=== PATIENT | male | born 1970 | race Caucasian/White ===

== ENCOUNTER → 2017-02-05 | Outpatient (CLI) | payer OTHER ==
--- NOTE | 2017-02-05 16:26 | ECHRPT ---
Indication: Cardiac murmur, unspecified CONCLUSIONS Mild concentric left ventricular hypertrophy with LVEF 60%. Normal left ventricular size. No regional wall motion abnormalities are present. The left atrial size is mildly dilated. [id number] mitral valve regurgitation. There is trace to mild tricuspid valve regurgitation. The estimated pulmonary arterial pressure is 34.4 mmHg. BP: / HR: 64 Rhythm: Sinus MEASUREMENTS (Male / Female) Normal Values Technical Quality:Good 2D ECHO LV Diastolic Diameter PLAX 5.2 cm 4.2 - 5.9 / 3.9 - 5.3 cm LV Systolic Diameter PLAX 3.7 cm IVS Diastolic Thickness 1.3 cm 0.6 - 1.0 / 0.6 - 0.9 cm LVPW Diastolic Thickness 1.3 cm 0.6 - 1.0 / 0.6 - 0.9 cm LV Relative Wall Thickness 0.5 LVOT Diameter 2.3 cm M-MODE Aortic Root Diameter MM 3.0 cm LA Systolic Diameter MM 4.3 cm LA Ao Ratio MM 1.4 AV Cusp Separation MM 1.7 cm DOPPLER AV Peak Velocity 158.0 cm/s AV Peak Gradient 10.0 mmHg LVOT Peak Velocity 132.0 cm/s LVOT Peak Gradient 7.0 mmHg AV Area Cont Eq pk 3.5 cm MR Peak Velocity 340.0 cm/s MR Peak Gradient 46.2 mmHg Mitral E Point Velocity 80.5 cm/s Mitral A Point Velocity 62.2 cm/s Mitral E to A Ratio 1.3 LV E' Lateral Velocity 12.4 cm/s Mitral E to LV E' Lateral Ratio 6.5 LV E' Septal Velocity 8.8 cm/s Mitral E to LV E' Septal Ratio 9.2 TR Peak Velocity 271.0 cm/s TR Peak Gradient 29.4 mmHg Right Atrial Pressure 5.0 mmHg Pulmonary Artery Systolic Pressu 34.4 mmHg Right Ventricular Systolic Press 34.4 mmHg PV Peak Velocity 115.0 cm/s PV Peak Gradient 5.3 mmHg FINDINGS LEFT VENTRICLE The left ventricular systolic function is normal with an estimated ejection fraction in the range of 60-65%. Mild concentric left ventricular hypertrophy. Normal left ventricular size. No regional wall motion abnormalities are present. RIGHT VENTRICLE Normal right ventricular size and systolic function. LEFT ATRIUM The left atrial size is mildly dilated. RIGHT ATRIUM The right atrial size is normal. ATRIAL SEPTUM Normal atrial septal thickness without atrial level shunting by limited color doppler interrogation. AORTA The aortic root and proximal ascending aorta are normal in size on limited imaging. MITRAL VALVE [id number] mitral valve regurgitation. AORTIC VALVE Trileaflet aortic valve. No aortic valve stenosis or regurgitation. TRICUSPID VALVE There is trace to mild tricuspid valve regurgitation. The estimated pulmonary arterial pressure is 34.4 mmHg. PULMONARY VALVE No pulmonary valve regurgitation or stenosis. VESSELS The inferior vena cava is normal in size. PERICARDIUM No pericardial effusion. Benja Galaviz MD (Electronically Signed) Final Date:05 February 2017 16:25
== END ==
LOC: HECH 08:55
PROVIDERS: ATTEND Family Medicine
DX: R01.1 Cardiac murmur, unspecified (principal)
CPT/HCPCS: 93306